=== PATIENT | male | born 1965 | race Caucasian/White ===

== ENCOUNTER 2024-02-26 12:07 | Emergency (ER) | payer MEDICAID ==
[~2024-02-26] VITALS: Ht 182.9 cm; Wt 92.6 kg
[2024-02-26 13:20] VITALS: BP 130/83; PULSE 83; RESP 16; TEMP 98.2; O2SAT 99
== END 2024-02-26 15:04 | disposition home or self-care (01) ==
LOC: ER 12:08
DX: S61.401A Unspecified open wound of right hand, initial encounter (principal); X58.XXXA Exposure to other specified factors, initial encounter; Y93.89 Activity, other specified; Y92.89 Other specified places as the place of occurrence of the external cause; Y99.8 Other external cause status
CPT/HCPCS: 73130; 99283; A6258

== ENCOUNTER 2024-03-02 12:54 | Day surgery (SDC) | payer MEDICAID ==
[~2024-03-02] VITALS: Ht 182.9 cm; Wt 92.9 kg
[2024-03-02] VITALS (7 sets, daily range): BP systolic 122–140; BP diastolic 79–92; PULSE 72–83; RESP 14–16; TEMP 97.8; O2SAT 97–100
[2024-03-02] MEDS: famotidine 20mg tablet PO ONE (13:51)
[2024-03-02] MEDS: cefazolin 2gm/D5W 100mL 100 ML IV ONE (13:52)
[2024-03-02] MEDS: ringers solution, lacted 1,000 ML IV SCH (13:52)
[2024-03-02] MEDS ORDERED: sevoflurane 250ml liquid IH ONE (14:06)
[2024-03-02] MEDS ORDERED: BUPIVAcaine/PF 2.5mg/ml (0.25%) 10ml vial ONE ×2 (14:08→14:21)
[2024-03-02] MEDS ORDERED: fentaNYL /PF 50mcg/ml 5ml ampule ONE (14:10)
[2024-03-02] MEDS ORDERED: midazolam 1 mg/ML 2ml injection ONE (14:10)
[2024-03-02] MEDS ORDERED: propofol inj 20 ML IV ONE (14:10)
[2024-03-02 14:22] LABS: ALBUMIN 3.7 G/DL (3.4-5.0); ALBUMIN/GLOBULIN RATIO 1.1 (1.1-1.5); ALKALINE PHOSPHATASE 65 IU/L (46-116); BLOOD UREA NITROGEN 12 MG/DL (7-18); BUN/CREATININE RATIO 16.2 (10.0-20.0); CALCIUM 8.4 MG/DL (8.5-10.1); CHLORIDE 105 MMOL/L (99-107); CREATININE 0.74 MG/DL (0.60-1.10); PRE OP ALT 16 U/L (30-65); PRE OP ANION GAP 8 (8-16); PRE OP AST 11 U/L (10-37); PRE OP BILIRUB, TOTAL 1.2 MG/DL (0.0-1.0); PRE OP GLUCOSE 97 MG/DL (70-104); PRE OP POTASSIUM 3.7 MMOL/L (3.4-5.1); PRE OP SODIUM 138 MMOL/L (135-145); TOTAL CARBON DIOXIDE 25.2 MMOL/L (24-32); eCRCL 121 ML/MIN; eGFR > 90 ML/MIN
[2024-03-02 14:23] LABS: BASOPHILS % (AUTO) 0.9 % (0-1); EOSINOPHILS % (AUTO) 0.9 % (0-6); LYMPHOCYTES # (AUTO) 1.2 X10'3 (1.1-4.8); LYMPHOCYTES % (AUTO) 27.5 % (21-51); MEAN CORPUSCULAR HEMOGLOBIN 28.7 PG (27.0-31.0); MEAN CORPUSCULAR HGB CONC 32.9 g/dL (33.0-36.5); MEAN CORPUSCULAR VOLUME 87.2 FL (78-98); MEAN PLATELET VOLUME 8.6 FL (7.4-10.4); MONOCYTES # (AUTO) 0.3 X10'3 (0-0.9); MONOCYTES % (AUTO) 6.9 % (2-12); NEUTROPHILS # (AUTO) 2.7 X10'3 (1.8-7.7); NEUTROPHILS % (AUTO) 63.8 % (42-75); PRE OP HEMATOCRIT 45.3 % (42.0-52.0); PRE OP HEMOGLOBIN 14.9 g/dL (14.0-17.9); PRE OP PLATELET COUNT 193 X10'3 (140-440); PRE OP WHITE BLOOD COUNT 4.3 10'3 (4.8-10.8); RED CELL DISTRIBUTION WIDTH 14.5 % (11.5-14.5)
[2024-03-02] MEDS: BUPIVAcaine/PF 2.5mg/ml (0.25%) 10ml vial IJ ONE (14:27)
[2024-03-02] MEDS ORDERED: morphine 2 MG/ML inj. syringe IV PRN (14:45)
[2024-03-02] MEDS ORDERED: proCHLORperazine 10 MG/2 ml inj IV PRN (14:45)
[2024-03-02] MEDS ORDERED: morphine 4 MG/ML inj SYRINge IV PRN (14:45)
[2024-03-02] MEDS ORDERED: ondansetron/PF 4mg/2ml inj IV PRN (14:45)
[2024-03-02] MEDS ORDERED: ringers solution, lacted 1,000 ML IV SCH (14:45)
[2024-03-02] MEDS ORDERED: meperidine/PF 25mg/ml syringe IV PRN ×3 (14:45)
== END 2024-03-02 15:35 | disposition home or self-care (01) ==
LOC: PAS 12:54
PROVIDERS: ATTEND Orthopaedic Surgery Hand Surgery
DX: S61.401A Unspecified open wound of right hand, initial encounter (principal); I10 Essential (primary) hypertension; E11.9 Type 2 diabetes mellitus without complications; Z79.899 Other long term (current) drug therapy; X58.XXXA Exposure to other specified factors, initial encounter; Y93.89 Activity, other specified; Y92.89 Other specified places as the place of occurrence of the external cause; Y99.8 Other external cause status
CPT/HCPCS: 11044; 36415; 80053; 82948; 85025; 93005; A6222; J0690; J2250; J2704; J3010; J3490; J7120; Z7506; Z7512; A4618; A6449